=== PATIENT | male | born 1980 | race African-American/Black ===

== ENCOUNTER 2018-01-17 11:04 | Emergency (ER) | payer MEDICAID ==
[~2018-01-17] VITALS: Ht 185.4 cm; Wt 130.0 kg
[2018-01-17 11:08] VITALS: BP 124/88
== END 2018-01-17 14:04 | disposition home or self-care (01) ==
LOC: ER 11:04
DX: L03.115 Cellulitis of right lower limb (principal)
CPT/HCPCS: 99283

== ENCOUNTER 2018-07-06 09:19 | Emergency (ER) | payer MEDICAID ==
[~2018-07-06] VITALS: Ht 185.4 cm; Wt 125.0 kg
[2018-07-06] MEDS ORDERED: KETOROLAC 60MG/2ML VIAL IM STA (11:23)
[2018-07-06 13:10] VITALS: BP 133/86
== END 2018-07-06 13:20 | disposition home or self-care (01) ==
LOC: ER 09:19
DX: K04.7 Periapical abscess without sinus (principal); M79.672 Pain in left foot; K08.89 Other specified disorders of teeth and supporting structures; Z88.6 Allergy status to analgesic agent
CPT/HCPCS: 73630; 96372; 99283; J1885

== ENCOUNTER 2018-10-11 11:39 | Emergency (ER) | payer MEDICAID | END 2018-10-11 13:09 | disposition left against medical advice (07) | LOC: ER 11:39 | DX: Z53.21 Procedure and treatment not carried out due to patient leaving prior to being seen by health care provider (principal) ==